=== PATIENT | male | born 1945 | race Caucasian/White ===

== ENCOUNTER → 2016-09-05 | Outpatient (CLI) | payer MEDICARE ==
[2016-09-05 12:21] LABS: Anion Gap 12 mmol/L; Blood Urea Nitrogen 28 mg/dL (9-20); Calcium 9.3 mg/dL (8.4-10.2); Carbon Dioxide 25 mmol/L (22-30); Chloride 104 mmol/L (98-107); Glucose 107 mg/dL (74-99); Non-African American GFR(MDRD) >60 (>60 ml/min/1.73 sqM); Potassium 4.9 mmol/L (3.5-5.1); Sodium 141 mmol/L (137-145)
== END | disposition home or self-care (01) ==
LOC: LABWHC1 11:14
PROVIDERS: ATTEND Internal Medicine Interventional Cardiology
DX: I10 Essential (primary) hypertension (principal); I25.10 Atherosclerotic heart disease of native coronary artery without angina pectoris
CPT/HCPCS: 36415; 80048

== ENCOUNTER → 2017-06-28 | Outpatient (CLI) | payer MEDICARE | END | disposition home or self-care (01) | LOC: LABPAT 10:09 → CATHEP 07-01 06:12 | PROVIDERS: ATTEND Internal Medicine Interventional Cardiology | DX: Z01.812 Encounter for preprocedural laboratory examination (principal); I48.1 Persistent atrial fibrillation | CPT/HCPCS: 36415; 80051; 82565; 84520; 85027; 93005 ==

== ENCOUNTER → 2017-06-28 | Outpatient (CLI) | payer MEDICARE ==
[2017-06-28 10:34] LABS: CH 31.8; CHCM 32.8; HCT 48.1 % (39.0-53.0); HDW 2.56; HGB 15.2 gm/dL (13.0-17.5); MCH 30.7 pg (25.0-35.0); MCHC 31.5 g/dL (31.0-37.0); MCV 97.5 fL (80.0-100.0); Mean Platelet Volume 6.6; RBC 4.94 m/uL (4.30-5.90); WBC 7.3 k/uL (3.8-10.6)
[2017-06-28 11:02] LABS: Anion Gap 10 mmol/L; Blood Urea Nitrogen 30 mg/dL (9-20); Carbon Dioxide 21 mmol/L (22-30); Chloride 108 mmol/L (98-107); Non-African American GFR(MDRD) >60 (>60 ml/min/1.73 sqM); Potassium 4.5 mmol/L (3.5-5.1); Sodium 139 mmol/L (137-145)
== END | disposition home or self-care (01) ==
LOC: LABWHC1 12:00
PROVIDERS: ATTEND Internal Medicine Interventional Cardiology
DX: Z01.818 Encounter for other preprocedural examination (principal); I48.1 Persistent atrial fibrillation
CPT/HCPCS: 36415; 80051; 82565; 84520; 85027

== ENCOUNTER → 2017-08-20 | Outpatient (CLI) | payer MEDICARE ==
[2017-08-20 15:24] LABS: Anion Gap 11 mmol/L; Blood Urea Nitrogen 25 mg/dL (9-20); Calcium 9.5 mg/dL (8.4-10.2); Carbon Dioxide 27 mmol/L (22-30); Chloride 102 mmol/L (98-107); Digoxin 0.7 ng/mL; Glucose 92 mg/dL (74-99); Non-African American GFR(MDRD) >60 (>60 ml/min/1.73 sqM); Potassium 4.6 mmol/L (3.5-5.1); Sodium 140 mmol/L (137-145)
[2017-08-20 15:38] LABS: INR 2.1 (<1.2); Prothrombin Time 19.3 sec (9.0-12.0)
== END | disposition home or self-care (01) ==
LOC: LABWHC1 14:49
PROVIDERS: ATTEND Internal Medicine
DX: I48.1 Persistent atrial fibrillation (principal)
CPT/HCPCS: 36415; 80048; 80162; 85610

== ENCOUNTER → 2017-10-01 | Outpatient (CLI) | payer MEDICARE ==
[2017-10-01 11:27] LABS: HCT 48.1 % (39.0-53.0); HGB 15.7 gm/dL (13.0-17.5); MCH 31.3 pg (25.0-35.0); MCHC 32.6 g/dL (31.0-37.0); MCV 95.9 fL (80.0-100.0); Platelet Count 217 k/uL (150-450); RBC 5.02 m/uL (4.30-5.90); RDW 14.2 % (11.5-15.5); WBC 6.1 k/uL (3.8-10.6)
[2017-10-01 11:34] LABS: Anion Gap 9 mmol/L; Blood Urea Nitrogen 22 mg/dL (9-20); Calcium 9.2 mg/dL (8.4-10.2); Carbon Dioxide 26 mmol/L (22-30); Chloride 104 mmol/L (98-107); Glucose 116 mg/dL (74-99); Potassium 4.4 mmol/L (3.5-5.1); Sodium 139 mmol/L (137-145)
== END | disposition home or self-care (01) ==
LOC: LABWHC1 10:50
PROVIDERS: ATTEND Internal Medicine Clinical Cardiac Electrophysiology
DX: I48.1 Persistent atrial fibrillation (principal)
CPT/HCPCS: 36415; 80048; 85027

== ENCOUNTER → 2017-11-06 | Outpatient (CLI) | payer MEDICARE ==
[2017-11-06 10:50] LABS: HCT 44.7 % (39.0-53.0); HGB 15.3 gm/dL (13.0-17.5); MCHC 34.3 g/dL (31.0-37.0); MCV 93.3 fL (80.0-100.0); Mean Platelet Volume 6.6; Platelet Count 214 k/uL (150-450); RBC 4.79 m/uL (4.30-5.90); RDW 14.7 % (11.5-15.5); WBC 7.3 k/uL (3.8-10.6)
[2017-11-06 11:12] LABS: Calcium 9.3 mg/dL (8.4-10.2); Potassium 4.6 mmol/L (3.5-5.1)
== END | disposition home or self-care (01) ==
LOC: LABWHC1 10:28
PROVIDERS: ATTEND Internal Medicine Clinical Cardiac Electrophysiology
DX: I48.1 Persistent atrial fibrillation (principal)
CPT/HCPCS: 36415; 80048; 85027

== ENCOUNTER 2017-11-21 10:22 | Day surgery (SDC) | payer MEDICARE ==
[2017-11-19 08:52] VITALS: BMI 36.2
[~2017-11-21 10:22] MED LIST: SODIUM CHLORIDE 0.9% 1,000 ML IV SCH
[2017-11-21 11:51] LABS: INR 2.5 (<1.2); Prothrombin Time 22.3 sec (9.0-12.0)
[2017-11-21] MEDS ORDERED: MIDAZOLAM 2 MG/2 ML VIAL ONE (13:07)
[2017-11-21] MEDS ORDERED: LIDOCAINE 1% INJ 10MG/ML (20 ML MDV) ONE (13:07)
[2017-11-21] MEDS ORDERED: fentaNYL (PF) 50 MCG/ML 2 ML AMP ONE (13:07)
[2017-11-21] MEDS ORDERED: ISOPROTERENOL 250 MCG/1.25 ML SYR IV ONE (13:07)
[2017-11-21] MEDS ORDERED: PROPOFOL 10 MG/ML 20 ML VIAL IV ONE (13:07)
[2017-11-21] MEDS ORDERED: PHENYLEPHRINE-0.9% NACL SYG 1 MG/10 ML SYRINGE ONE (13:07)
[2017-11-21] MEDS ORDERED: SUCCINYLCHOLINE CHLORIDE 100 MG/5 ML SYR IV ONE (13:07)
[2017-11-21] MEDS ORDERED: HEPARIN SODIUM,PORCINE 5,000 UNIT/ML 1 ML VIAL ONE (13:07)
[2017-11-21] MEDS ORDERED: ePHEDrine SULFATE/0.9% NACL/PF 50 MG/5 ML SYRINGE IV ONE (13:07)
[2017-11-21] MEDS ORDERED: HEPARIN SODIUM (1,000 UNIT/ML) 1,000 UNIT in SODIUM CHLORIDE 0.9% 1,000 ML IRRIGATION ONE (13:30)
[2017-11-21] MEDS ORDERED: LIDOCAINE 2% (PF) 20 MG/ML 10 ML AMP SQ ONE (13:46)
[2017-11-21] MEDS ORDERED: HYDROcodone/APAP 5-325MG 1 EACH TAB PO PRN (15:19)
[2017-11-21] MEDS ORDERED: ACETAMINOPHEN TAB 325 MG TAB PO PRN (15:19)
[2017-11-21] MEDS ORDERED: ACETAMINOPHEN IV (For NPO) 1,000 MG in EMPTY BAG 1 BAG IVPB ONE (16:00)
[2017-11-21] MEDS ORDERED: DIAZEPAM 5 MG TAB PO ONE (16:45)
[2017-11-21] MEDS ORDERED: WARFARIN 2.5 MG TAB PO SCH (18:00)
--- NOTE | 2017-11-21 20:16 | CE ---
CARDIAC ELECTROPHYSIOLOGY REPORT This is a 72-year-old male patient who has undergone pulmonary vein isolation successfully. He came in with palpitations, was found to be in atrial flutter with RVR and atrial flutter ablation was recommended. PROCEDURE: Patient was brought to the EP lab in a fasting state. Written informed consent was obtained prior to the procedure. He was in atrial flutter at the start of the study. The procedure performed under general anesthesia. Venous sheaths were placed in the right left femoral veins. Diagnostic and mapping ablation catheters were placed. Intracardiac echo catheter was placed. Initially, the tachycardia cycle length was 256 milliseconds. After electrical cardioversion, sinus cycle length was 1273 milliseconds. NJ interval 178 milliseconds, QRS 112 milliseconds, QT 335 milliseconds. Baseline AH interval 104 milliseconds, HV interval 37 milliseconds. Coronary sinus catheter was placed. Intracardiac echo catheter was placed. Mapping and ablation catheter was placed at the right atrial isthmus. Entrainment mapping was performed at 2 different sites, 2 different cycle lengths and isthmus dependency was proven. Following that, electrical cardioversion was performed. The rest of the procedure was performed in sinus rhythm. 3D mapping was performed. Intracardiac echo was performed. There was no pericardial effusion baseline and no left atrial thrombus. No right atrial thrombus. Smoke was noted post cardioversion and IV heparin was administered. Patient was on uninterrupted Coumadin therapy. Electroanatomic mapping of the right atrial isthmus was performed. The tricuspid anulus was tagged. A eustachian ridge was tagged. There was a mid isthmus pouch which was tagged. RF ablation was performed. Complete line of block was made. This was completed anatomically and interrogated on 100% grid. Following that, with pacing maneuvers differential pacing and with differential pacing, complete bidirectional block was proven. Split potentials of 135 milliseconds were noted along the line with pacing maneuvers and the isthmus conduction time was greater than 180 milliseconds. Following that, CS pacing was performed. AV node Wenckebach block was 390 milliseconds, VA Wenckebach block was 40 milliseconds. Sinus node recovery times was at 600 and 500 milliseconds from the high right atrium, were 1318 and 901 milliseconds, indicative of sinus node entrance block. Isuprel was administered and atrial pacing was performed; however, the patient could not tolerate Isuprel and his blood pressure would drop to 70 mmHg if Isuprel was stopped, but no atrial fibrillation was induced with atrial pacing on Isuprel. RESULT: Successful radiofrequency ablation for atrial flutter with complete bidirectional block and split potentials of 135 milliseconds along the line with CS pacing and isthmus conduction time of greater than 180 to 190 milliseconds. The patient tolerated the procedure well without any complications. He was extubated successfully. PLAN: Continue anticoagulation. Continue low-dose amiodarone at 100 mg p.o. daily. Reduce dose of metoprolol to 50 mg twice daily. MMODL / IJN: [id number] /
[2017-11-21] MEDS: METOPROLOL TARTRATE 50 MG TAB PO SCH (21:44)
[2017-11-21] MEDS ORDERED: DIAZEPAM 5 MG TAB PO PRN (22:00)
[2017-11-22 05:11] VITALS: RESP 18
--- NOTE | 2017-11-22 08:31 | P.DS ---
Providers Attending physician: Ryan Hammer Primary care physician: [facility] Course: Patient is doing well from a cardiac standpoint. He denies any chest discomfort dizziness shortness of breath. He sitting up comfortably in bed and has eaten breakfast. History he has some oozing from the groin but with a chronic healed well there is no hematoma and no bleeding no tenderness He denies any chest discomfort On examination his heart sounds are normal normal S1 normal S2 and a regular Abdomen soft nontender Breath sounds are clear no rhonchi no crackles Extremities warm He is afebrile 98.5F pulse rate the 70s normal respirations and blood pressure is 115/69 mmHg Impression Atrial flutter, symptomatic, drug refractory, with RVR despite medical treatment Status post successful atrial flutter ablation with demonstration of complete block and split potentials along the line of 135 ms History of atrial fibrillation status post cryoablation in the past with complete isolation of the pulmonary veins Plan Continue anticoagulation lifelong Reduce metoprolol to 50 g twice daily Continue low-dose aspirin losartan and low dose amiodarone as well as Lipitor Follow-up with Dr. Quispe in a week Patient Condition at Discharge: Stable Plan - Discharge Summary Discharge Rx Participant: No New Discharge Prescriptions: Continue Losartan [Cozaar] 50 mg PO DAILY Warfarin Sodium [Coumadin] 5 mg PO TUSA Aspirin [Adult Low Dose Aspirin EC] 81 mg PO DAILY Warfarin Sodium 2.5 mg PO SUMOWETHFR Amiodarone [Cordarone] 100 mg PO DAILY #30 tab Metoprolol Tartrate [Lopressor] 50 mg PO TID Lipitor(Dose Unknown) 1 tab PO HS Discharge Medication List Aspirin [Adult Low Dose Aspirin EC] 81 mg PO DAILY 06/26/17 [History] Losartan [Cozaar] 50 mg PO DAILY 06/26/17 [History] Warfarin Sodium [Coumadin] 5 mg PO TUSA 06/26/17 [History] Warfarin Sodium 2.5 mg PO SUMOWETHFR 08/21/17 [History] Amiodarone [Cordarone] 100 mg PO DAILY #30 tab 10/03/17 [Rx] Lipitor(Dose Unknown) 1 tab PO HS 11/19/17 [History] Metoprolol Tartrate [Lopressor] 50 mg PO TID 11/19/17 [History] Follow up Appointment(s)/Referral(s): Phi Quispe MD [STAFF PHYSICIAN] - 1 Week
[2017-11-22] MEDS: METOPROLOL TARTRATE 50 MG TAB PO SCH (08:54)
[2017-11-22] MEDS ORDERED: AMIODARONE 100 MG TAB PO SCH (09:00)
[2017-11-22] MEDS ORDERED: LOSARTAN 50 MG TAB PO SCH (09:00)
[2017-11-22] MEDS ORDERED: ASPIRIN 81 MG PO SCH (09:00)
[2017-11-22 09:06] VITALS: BP 100/63; PULSE 74; TEMP 98.7
[2017-11-23] MEDS ORDERED: WARFARIN 5 MG TAB PO SCH (18:00)
== END 2017-11-22 10:20 | disposition home or self-care (01) ==
LOC: CATHEP 10:22 → 3OBS 15:20 → CATHEP 11-22 10:20
PROVIDERS: ATTEND Internal Medicine Clinical Cardiac Electrophysiology
DX: I48.3 Typical atrial flutter (principal); I44.2 Atrioventricular block, complete; I48.1 Persistent atrial fibrillation; I25.10 Atherosclerotic heart disease of native coronary artery without angina pectoris; Z95.5 Presence of coronary angioplasty implant and graft; E66.9 Obesity, unspecified; Z68.35 Body mass index [BMI] 35.0-35.9, adult; I47.2 Ventricular tachycardia; E78.00 Pure hypercholesterolemia, unspecified; I10 Essential (primary) hypertension; G47.33 Obstructive sleep apnea (adult) (pediatric); F17.210 Nicotine dependence, cigarettes, uncomplicated; Z86.718 Personal history of other venous thrombosis and embolism; Z79.01 Long term (current) use of anticoagulants; Z79.82 Long term (current) use of aspirin; Z79.899 Other long term (current) drug therapy
CPT/HCPCS: 92960; 93623; 93662; 93613; 93653; 85610; C1894; C1769 ×2; C1893; C1730; C1759; C1732; J2001; J1644